=== PATIENT | male | born 1985 | race Hispanic/Latino ===

== ENCOUNTER 2021-10-01 15:35 | Inpatient (IN) | payer BC ==
[2021-10-01] MEDS ORDERED: Dextrose 50% Abboject 50 ML SYRINGE SLOW IVP PRN (18:53)
[2021-10-01] MEDS ORDERED: Dextrose 5% in Water 1,000 ML IV PRN (18:53)
[2021-10-01] MEDS ORDERED: Acetaminophen 325 MG TAB PO PRN (18:58)
[2021-10-01] MEDS ORDERED: Ondansetron PF 4 MG/2 ML Vial IVP PRN (18:58)
[2021-10-01] MEDS ORDERED: Bisacodyl 5 MG TAB PO PRN (18:58)
[2021-10-01] MEDS ORDERED: Senokot S 8.6-50 MG TAB PO PRN (18:58)
[2021-10-01] MEDS ORDERED: Enoxaparin Sodium 40 MG/0.4 ML SYRINGE SC SCH (19:00)
[2021-10-01] MEDS ORDERED: Melatonin 3 MG TAB PO PRN (19:07)
[2021-10-01 20:10] LABS: #Lymphocytes 2.4 thou/uL (1.20-3.40); #Neutrophils 6.2 thou/uL (1.40-6.50); %Basophils 0.4 % (0.0-1.0); %Eosinophils 0.4 % (0.0-10.0); %Lymphocytes 24.6 % (21.0-51.0); %Monocytes 10.6 % (0.0-10.0); %Neutrophils 63.9 % (42.0-75.0); Hemoglobin 15.2 g/dL (14.0-18.0); Mean Corpuscular HGB CONC 35.9 g/dL (32.0-36.0); Mean Corpuscular Hemoglobin 30.3 pg (27.0-31.0); Mean Corpuscular Volume 84.5 fL (78.0-98.0); Mean Platelet Volume 7.3 fL (7.4-10.4); Platelet Count 182 thou/uL (130-400); RBC Distribution Width 11.9 % (11.5-14.5); White Blood Cell (WBC) Count 9.7 thou/uL (4.8-10.8)
[2021-10-01 20:20] VITALS: BMI 29.2
[2021-10-01 20:32] LABS: ALT (SGPT) 36 U/L (8-55); AST (SGOT) 16 U/L (5-34); Alkaline Phosphatase 97 U/L (40-110); Anion Gap 14 mmol/L (10-20); BUN (Urea Nitrogen) 12 mg/dL (8.9-20.6); Bilirubin, Total 0.7 mg/dL (0.2-1.2); Calc. Creatinine Clearance 110 mL/min (70-130); Carbon Dioxide 28 mmol/L (22-29); Chloride 95 mmol/L (98-107); Globulin 3.8 g/dL (2.4-3.5); Glucose 356 mg/dL (70-105); Potassium 4.1 mmol/L (3.5-5.1); Protein, Total 7.8 g/dL (6.0-8.3); Sodium 133 mmol/L (136-145)
[2021-10-01] MEDS: Sodium Chloride 0.9% 1,000 ML IV SCH (20:34)
[2021-10-01] MEDS: Famotidine 20 MG TAB PO SCH (20:35)
[2021-10-01] MEDS: HYDROcodone/Acetaminophen 5/325 mg Tablet PO PRN (20:45)
[2021-10-01] MEDS ORDERED: Atorvastatin Calcium 10 MG TAB PO SCH (21:00)
[2021-10-01] MEDS ORDERED: Lisinopril 5 MG TAB PO SCH (21:45)
[2021-10-01] MEDS: HumaLOG 300 UNITS/3 ML VIAL SC PRN (22:19)
[2021-10-01] MEDS: Clindamycin/D5W 600 MG in Premix Bag 1 BAG IVPB SCH (23:17)
[2021-10-02] MEDS: Sodium Chloride 0.9% 1,000 ML IV SCH ×2 (04:40→17:12)
[2021-10-02] MEDS: HYDROcodone/Acetaminophen 5/325 mg Tablet PO PRN ×2 (05:53→19:33)
[2021-10-02] MEDS: HumaLOG 300 UNITS/3 ML VIAL SC PRN ×3 (06:10→23:53)
[2021-10-02 06:20] LABS: #Basophils 0.1 thou/uL (0.0-0.2); #Lymphocytes 1.9 thou/uL (1.20-3.40); #Monocytes 0.8 thou/uL (0.11-0.59); #Neutrophils 5.1 thou/uL (1.40-6.50); %Basophils 0.7 % (0.0-1.0); %Eosinophils 0.4 % (0.0-10.0); %Lymphocytes 23.8 % (21.0-51.0); %Monocytes 10.3 % (0.0-10.0); %Neutrophils 64.7 % (42.0-75.0); Hemoglobin 15.4 g/dL (14.0-18.0); Mean Corpuscular HGB CONC 36.3 g/dL (32.0-36.0); Mean Corpuscular Hemoglobin 30.6 pg (27.0-31.0); Mean Corpuscular Volume 84.3 fL (78.0-98.0); Mean Platelet Volume 7.3 fL (7.4-10.4); Platelet Count 178 thou/uL (130-400); RBC Distribution Width 11.9 % (11.5-14.5); Red Blood Cell (RBC) Count 5.04 mill/uL (4.70-6.10); White Blood Cell (WBC) Count 7.9 thou/uL (4.8-10.8)
[2021-10-02 06:36] LABS: Hemoglobin A1c Greater than 14.0 % (4.0-6.0)
[2021-10-02 06:50] LABS: Anion Gap 15 mmol/L (10-20); BUN (Urea Nitrogen) 13 mg/dL (8.9-20.6); Calc. Creatinine Clearance 144 mL/min (70-130); Calcium 9.6 mg/dL (7.8-10.44); Carbon Dioxide 22 mmol/L (22-29); Cardiac Risk 5.3 (Less than 4.5); Chloride 100 mmol/L (98-107); Cholesterol 168 mg/dl (< 200 Desired); Glucose 302 mg/dL (70-105); HDL Cholesterol 32 mg/dL (>60 Neg Risk); LDL Cholesterol, Calculated 75 mg/dL; Potassium 3.9 mmol/L (3.5-5.1); Sodium 133 mmol/L (136-145); Triglycerides 303 mg/dL (Less than 150)
[2021-10-02] MEDS: Lisinopril 5 MG TAB PO SCH (09:41)
[2021-10-02] MEDS: Famotidine 20 MG TAB PO SCH ×2 (09:42→21:13)
[2021-10-02] MEDS: Clindamycin/D5W 600 MG in Premix Bag 1 BAG IVPB SCH ×3 (09:42→23:49)
[2021-10-02] MEDS ORDERED: Fentanyl 100 MCG/2 ML VIAL ONE ×2 (13:38→15:34)
[2021-10-02] MEDS ORDERED: Bupivacaine 0.25% 10 ML VIAL ONE (13:47)
[2021-10-02] MEDS ORDERED: Lidocaine 1% (PF) 30 ML VIAL ONE (13:47)
[2021-10-02] MEDS ORDERED: Lidocaine 1% PF 5 ML VIAL ONE (14:15)
[2021-10-02] MEDS ORDERED: Dexamethasone 20 MG/5 ML VIAL ONE (14:15)
[2021-10-02] MEDS ORDERED: PROPOFOL 200 MG/20 ML VIAL ONE (14:15)
[2021-10-02] MEDS ORDERED: Phenylephrine 10 MG/ML VIAL ONE (14:15)
[2021-10-02] MEDS ORDERED: Ondansetron PF 4 MG/2 ML Vial ONE (14:15)
[2021-10-02] MEDS ORDERED: ePHEDrine 50 MG/ML VIAL ONE (14:15)
[2021-10-02] MEDS ORDERED: HYDROmorphone 2 MG/ML VIAL ONE (14:24)
[2021-10-02] MEDS ORDERED: Meperidine HCl/PF 25 MG/ML VIAL SLOW IVP PRN (15:02)
[2021-10-02] MEDS ORDERED: Promethazine HCl 25 MG/ML VIAL IVPB PRN (15:02)
[2021-10-02] MEDS ORDERED: Promethazine HCl 25 MG/ML VIAL IM PRN (15:02)
[2021-10-02] MEDS ORDERED: Ondansetron HCl/PF 4 MG/2 ML Vial IVP PRN (15:02)
[2021-10-02] MEDS ORDERED: HYDROmorphone 2 MG/ML VIAL SLOW IVP PRN (15:02)
[2021-10-02] MEDS: Alogliptin 6.25 MG TAB PO SCH (21:13)
[2021-10-02] MEDS: Enoxaparin Sodium 40 MG/0.4 ML SYRINGE SC SCH (21:13)
[2021-10-02] MEDS: Atorvastatin Calcium 10 MG TAB PO SCH (21:13)
[2021-10-03] MEDS: Sodium Chloride 0.9% 1,000 ML IV SCH ×3 (00:19→20:07)
[2021-10-03] MEDS: HumaLOG 300 UNITS/3 ML VIAL SC PRN ×4 (06:11→21:21)
[2021-10-03] MEDS: Clindamycin/D5W 600 MG in Premix Bag 1 BAG IVPB SCH ×2 (08:37→15:39)
[2021-10-03] MEDS: Famotidine 20 MG TAB PO SCH ×2 (08:38→21:13)
[2021-10-03] MEDS: Lisinopril 5 MG TAB PO SCH (08:38)
[2021-10-03] MEDS: HYDROcodone/Acetaminophen 5/325 mg Tablet PO PRN (08:42)
[2021-10-03] MEDS: Alogliptin 6.25 MG TAB PO SCH ×2 (08:42→21:32)
[2021-10-03] MEDS ORDERED: Bupivacaine PF 0.5% 30 ML VIAL ONE (10:23)
[2021-10-03] MEDS ORDERED: Bacitracin Zinc Ointment 30 gm TUBE ONE (10:23)
[2021-10-03] MEDS: HYDROcodone/Acetaminophen 7.5/325 mg Tablet PO PRN (18:36)
[2021-10-03] MEDS: Enoxaparin Sodium 40 MG/0.4 ML SYRINGE SC SCH (21:12)
[2021-10-03] MEDS: Atorvastatin Calcium 10 MG TAB PO SCH (21:13)
[2021-10-03] MEDS: Lantus 1000 UNITS/10 ML VIAL SC SCH (21:20)
[2021-10-04] MEDS: Clindamycin/D5W 600 MG in Premix Bag 1 BAG IVPB SCH ×3 (01:09→15:10)
[2021-10-04] MEDS: Sodium Chloride 0.9% 1,000 ML IV SCH ×2 (05:41→15:31)
[2021-10-04] MEDS: HumaLOG 300 UNITS/3 ML VIAL SC PRN ×4 (06:21→21:04)
[2021-10-04] MEDS ORDERED: FLU VACC QS2021-22(6MOS UP)/PF 60 MCG/0.5 ML SYRINGE IM ONE (09:00)
[2021-10-04] MEDS: Alogliptin 6.25 MG TAB PO SCH ×2 (09:05→20:49)
[2021-10-04] MEDS: Lisinopril 5 MG TAB PO SCH (09:06)
[2021-10-04] MEDS: Famotidine 20 MG TAB PO SCH ×2 (09:06→20:50)
[2021-10-04] MEDS: HYDROcodone/Acetaminophen 7.5/325 mg Tablet PO PRN ×2 (09:06→18:43)
[2021-10-04] MEDS: Lantus 1000 UNITS/10 ML VIAL SC SCH ×2 (09:07→21:05)
[2021-10-04] MEDS: Atorvastatin Calcium 10 MG TAB PO SCH (20:50)
[2021-10-04] MEDS: Enoxaparin Sodium 40 MG/0.4 ML SYRINGE SC SCH (20:51)
[2021-10-05] MEDS: Sodium Chloride 0.9% 1,000 ML IV SCH (03:15)
[2021-10-05] MEDS: HumaLOG 300 UNITS/3 ML VIAL SC PRN ×2 (06:46→11:55)
[2021-10-05] MEDS: Clindamycin/D5W 600 MG in Premix Bag 1 BAG IVPB SCH ×2 (08:25)
[2021-10-05] MEDS: Lisinopril 5 MG TAB PO SCH (08:26)
[2021-10-05] MEDS: Famotidine 20 MG TAB PO SCH (08:27)
[2021-10-05] MEDS: HYDROcodone/Acetaminophen 7.5/325 mg Tablet PO PRN ×2 (08:29→12:16)
[2021-10-05] MEDS: Alogliptin 6.25 MG TAB PO SCH (08:31)
[2021-10-05] MEDS: Lantus 1000 UNITS/10 ML VIAL SC SCH ×2 (08:34)
[2021-10-05 11:21] VITALS: BP 132/91; TEMP 98.5
== END 2021-10-05 13:58 | disposition home or self-care (01) | DRG 506 ==
LOC: INTOOBSV 17:30 → SURG B 17:30 → OBSVTOIN 10-04 08:22
PROVIDERS: ADMIT Internal Medicine; ATTEND Internal Medicine
PROC: 0R9W0ZZ Drainage of Right Finger Phalangeal Joint, Open Approach (ICD-10-PCS; principal; 2021-10-02)
DX: M65.841 Other synovitis and tenosynovitis, right hand (principal); Z20.822 Contact with and (suspected) exposure to COVID-19; E11.65 Type 2 diabetes mellitus with hyperglycemia; I10 Essential (primary) hypertension; W55.01XA Bitten by cat, initial encounter; Z91.11 Patient's noncompliance with dietary regimen; Z91.14 Patient's other noncompliance with medication regimen; Z88.0 Allergy status to penicillin; Z79.84 Long term (current) use of oral hypoglycemic drugs; Z79.899 Other long term (current) drug therapy
CPT/HCPCS: 36415; 36416; 80048; 80061; 83036; 85025; 87040; 96365; 96372; 96375; 96376; G0378; J1100; J1170; J1650; J1815; J1956; J2001; J2370; J2405; J2704; J3010; J3490; J7050; S0020